=== PATIENT | male | born 1950 | race Caucasian/White ===

== ENCOUNTER 2023-07-27 06:30 | Day surgery (SDC) | payer OTHER ==
[~2023-07-27 06:30] MED LIST: Sodium Chloride 0.9% 10 ML Syringe FLUSH PRN; Sodium Chloride 0.9% 10 ML Syringe FLUSH SCH
[2023-07-27] MEDS ORDERED: Ropivacaine 0.5% 5 MG/ML 30 ML SDV ONE (06:34)
[2023-07-27] MEDS ORDERED: dexmedeTOMIDine HCl 200 MCG/2 ML SDV ONE (06:34)
[2023-07-27] MEDS ORDERED: Midazolam 1 MG/ML 2 ML SDV ONE (06:36)
[2023-07-27] MEDS ORDERED: fentaNYL 100 MCG/2 ML SDV ONE ×2 (06:36→09:06)
[2023-07-27] MEDS ORDERED: Propofol 200 MG/20 ML SDV ONE ×2 (06:36→06:37)
[2023-07-27] MEDS ORDERED: Lidocaine 1% 6 ML ONE (06:40)
[2023-07-27] MEDS ORDERED: ceFAZolin 2 GM Vial ONE (06:44)
[2023-07-27] MEDS ORDERED: Dexamethasone 4 MG/ML 5 ML MDV ONE (06:44)
[2023-07-27] MEDS ORDERED: EPINEPHrine 1 MG/ML SDV ONE (06:45)
[2023-07-27] MEDS: Lactated Ringers 1,000 ML IV SCH (07:00)
[2023-07-27] MEDS ORDERED: Metoclopramide 10 MG/2 ML SDV ONE (08:37)
[2023-07-27] MEDS ORDERED: Lactated Ringers 1,000 ML ONE (08:37)
[2023-07-27] MEDS ORDERED: Ondansetron 4 MG/2 ML SDV ONE (08:37)
[2023-07-27] MEDS: Tranexamic Acid 1,000 MG/10 ML Vial ONE (09:22)
[2023-07-27] MEDS: Vancomycin 1 GM SDV ONE (09:22)
== END 2023-07-27 12:50 | disposition home or self-care (01) ==
LOC: JD.SDS 06:30
PROVIDERS: ATTEND Orthopaedic Surgery
DX: M19.012 Primary osteoarthritis, left shoulder (principal); E78.2 Mixed hyperlipidemia; K21.9 Gastro-esophageal reflux disease without esophagitis; Z79.899 Other long term (current) drug therapy; Z88.0 Allergy status to penicillin
CPT/HCPCS: 23472; 64415; 76000; 97161; 97530; C1713; C1769; C1776; J0171; J0690; J1100; J2250; J2405; J2704; J2765; J2795; J3010; J3370; J7030; J7120; 01638; 99100; J3490